=== PATIENT | male | born 2000 | race Caucasian/White ===

== ENCOUNTER 2019-09-05 09:48 | Emergency (ER) | payer OTHER ==
--- NOTE | 2019-09-05 10:26 | EDM.PDOC ---
ED HPI GENERAL MEDICAL PROBLEM - General Chief Complaint: Lower Extremity Injury/Pain Stated Complaint: LT KNEE INURY Time Seen by Provider: 09/05/19 10:18 Source of Information: Reports: Patient, RN Notes Reviewed - History of Present Illness INITIAL COMMENTS - FREE TEXT/NARRATIVE: 18 yr old male slipped, twisted L knee at work, "felt a pop". Now having severe pain with motion and wt bearing. Hx of prior sprain injury associated with wrestling about 4 yrs ago but no recent problems. - Related Data Allergies Allergy/AdvReac Type Severity Reaction Status Date / Time Sulfa (Sulfonamide Allergy Severe Chest Verified 09/05/19 10:09 Antibiotics) Presssure Home Meds: Home Meds Naproxen [Naprosyn] 500 mg PO Q12HR #14 tab 09/05/19 [Rx] Past Medical History - Past Surgical History HEENT Surgical History: Reports: Adenoidectomy, Other (See Below) Other HEENT Surgeries/Procedures: Skin graft to ear, PT is unaware why, poor historian Musculoskeletal Surgical History: Reports: Other (See Below) Other Musculoskeletal Surgeries/Procedures:: SX to RT 5th finger Social & Family History - Family History Family Medical History: Noncontributory - Tobacco Use Smoking Status *Q: Current Every Day Smoker Years of Tobacco use: 3 Packs/Tins Daily: 1 Review of Systems - Review of Systems Review Of Systems: See Below Constitutional: Reports: No Symptoms Mouth/Throat: Reports: No Symptoms Respiratory: Reports: No Symptoms Musculoskeletal: Reports: Joint Pain (L knee) Skin: Reports: No Symptoms Neurological: Reports: No Symptoms ED EXAM, GENERAL - Physical Exam Exam: See Below General Appearance: Alert, Mild Distress Head: Atraumatic Respiratory/Chest: No Respiratory Distress Extremities: Leg Pain (tender L medial knee, severe pain with motion, no visible effusion, joint stable, leg, ankle otherwise nontender), Limited Range of Motion. No: Joint Swelling Neurological: Alert, No Motor/Sensory Deficits Skin Exam: Warm, Dry, Normal Color, No Rash. No: Erythema, Increased Warmth Course - Vital Signs Last Recorded V/S: Last Vital Signs Temp 97.7 F 09/05/19 10:03 Pulse 62 09/05/19 10:03 Resp 16 09/05/19 10:03 BP 119/74 09/05/19 10:03 Pulse Ox 99 09/05/19 10:03 - Orders/Labs/Meds Meds: Medications Discontinued Medications Generic Name Dose Route Start Last Admin Trade Name Georgina PRN Reason Stop Dose Admin Naproxen 500 mg 09/05/19 11:02 09/05/19 11:05 Naprosyn PO 09/05/19 11:03 500 mg ONETIME ONE Administration - Re-Assessments/Exams Free Text/Narrative Re-Assessment/Exam: 09/05/19 16:15. X rays no fx, lives in [place] so will do his follow up there. Departure - Departure Time of Disposition: 11:03 Disposition: Home, Self-Care 01 Condition: Fair Clinical Impression: Left knee sprain - Discharge Information Prescriptions: Naproxen [Naprosyn] 500 mg PO Q12HR #14 tab Instructions: Knee Sprain, Adult, [id number] Referrals: PCP,None [Primary Care Provider] - Forms: ED Department Discharge Additional Instructions: danyelle wrap L knee, crutches, ice packs and elevation as needed for swelling. Naprosyn 500 mg twice daily with food. You may take tylenol in between doses if needed for extra pain relief. Follow up [facility] or with a clinic provider Sunday or Sunday for recheck. Sepsis Event Note (ED) - Evaluation Sepsis Screening Result: No Definite Risk - Focused Exam Vital Signs: Vital Signs Temp Pulse Resp BP Pulse Ox 09/05/19 10:03 97.7 F 62 16 119/74 99
[2019-09-05] MEDS ORDERED: Naproxen 500 MG Tab PO ONE (11:02)
--- NOTE | 2019-09-05 13:45 | CR ---
Left knee: AP, lateral and sunrise patellar views left knee were obtained. Comparison: No previous left knee study. Medial and lateral joint compartments maintained. No joint effusion is seen. No fracture or other abnormality is seen. Impression: 1. No abnormality is appreciated on 3 view left knee exam. Diagnostic code #1 This report was dictated in MDT
== END 2019-09-05 11:13 | disposition home or self-care (01) ==
LOC: JD.ED 09:48
DX: S83.92XA Sprain of unspecified site of left knee, initial encounter (principal); F17.210 Nicotine dependence, cigarettes, uncomplicated; Z88.2 Allergy status to sulfonamides; X50.1XXA Overexertion from prolonged static or awkward postures, initial encounter
CPT/HCPCS: 73562; 99283; A9270